=== PATIENT | female | born 1960 | race Caucasian/White ===

== ENCOUNTER 2019-09-14 18:26 | Emergency (ER) | payer OTHER, SELFPAY ==
[2019-09-14 18:26] VITALS: BP 177/115; PULSE 108; RESP 16; TEMP 36.9; O2SAT 95; BMI 31.2
--- NOTE | 2019-09-14 18:42 | RAD_ITS ---
STUDY: X-RAY CHEST REASON FOR EXAM: Female, 59 years old. Chest pain for 10 days TECHNIQUE: Single frontal view of the chest. COMPARISON: None. FINDINGS: The lungs are clear and expanded. There is no demonstrated pleural abnormality. Normal size heart. Normal mediastinum and bairon. Normal visualized pulmonary arteries. Normal visualized aortic arch and descending thoracic aorta. Normal visualized thoracic spine. Normal visualized ribs, clavicles, and shoulders. There is no demonstrated abnormality of the visualized soft tissue structures of the upper abdomen. RAD/Chest 1 View (Portable) IMPRESSION: Normal x-ray examination of the chest. Electronically Signed: Kameron Lagos MD at 19:00 EDT Tel , Service support ,
--- NOTE | 2019-09-14 18:42 | EKG12_ITS ---
Test Reason : CP Blood Pressure : / mmHG Vent. Rate : 105 BPM Atrial Rate : 105 BPM P-R Int : 196 ms QRS Dur : 102 ms QT Int : 352 ms P-R-T Axes : 027 002 006 degrees QTc Int : 465 ms Sinus tachycardia Inferior infarct , age undetermined Abnormal ECG Confirmed by PATTI CHAN, MAUREEN ([id number]), technical writer and editor THEO BRAR ([id number]) on 09/23/2019 11:26:59 AM Referred By: Jaquan King Confirmed By:MAUREEN ARMSTRONG MD
[2019-09-14 18:53] LABS: Absolute Lymphocyte Count 1.47 X10^3/uL (0.83-4.51); Absolute Neutrophil Count 5.4 X10^3/uL (2.0-7.7); Basophil# 0.05 X10^3/uL; Basophil% 0.6 % (0-1); Eosinophil# 0.19 X10^3/uL; Eosinophils% 2.5 % (0-5); Hematocrit 41.3 % (37-47); Lymphocyte # 1.47 X10^3/ul (4.0); Mean Corp Hgb Conc 33.9 g/dL (32-36); Mean Corpuscular Hgb 31.3 pg (27.0-32.0); Mean Corpuscular Volume 92.2 fL (81-99); Mean Platelet Vol. 10.2 fl (6.2-12.0); Monocyte% 7.8 % (0-10); NRBC Flagged by Analyzer 0 % (0-5); Neutrophil # 5.38 X10^3/uL (2.7-7.7); Neutrophil % 69.7 % (47-70); Platelet Count 320 K/mm3 (150-450); RBC Distribution Width CV 11.8 % (11.6-14.6); RBC Distribution Width SD 39.8 fl (35.1-43.9); Red Blood Count 4.48 M/mm3 (4.2-5.4); White Blood Count 7.7 K/mm3 (4.4-11.0)
[2019-09-14] MEDS: Aspirin 81 MG TAB.CHEW 324 MG PO (18:56)
[2019-09-14 18:57] VITALS: BP 160/110; PULSE 99; RESP 18; O2SAT 97
[2019-09-14] MEDS: 0.9% Normal Saline 1,000 ML 150 ML IV (18:57)
[2019-09-14 19:05] LABS: Anion Gap 6 (5-15); BUN 15 mg/dL (7-18); BUN/Creat Ratio 21.1 RATIO (10-20); Calcium,Total 9.2 mg/dL (8.5-10.1); Chloride 107 mmol/L (98-107); Creatinine, Serum 0.71 mg/dL (0.55-1.02); EST Glomerular Filtration Rate 90 mL/min (>60); Est Glom Filt Rate - Afr Amer 109 mL/min (>60); Estimated Creatinine Clearance 85.01 ml/min; Glucose 101 mg/dL (74-106); Potassium 3.5 mmol/L (3.5-5.1); Sodium Level 140 mmol/L (136-145)
[2019-09-14 19:07] LABS: D-Dimer Quantitative (DVT/PE) 0.57 FEU/ug/m (0.27-0.49)
--- NOTE | 2019-09-14 19:07 | ED.RN ---
DDIMER 0.57 CALLED FROM THE LAB . DR MARIE AWARE
--- NOTE | 2019-09-14 19:53 | ED.VISSUMM ---
- ER Visit Summary Date of Service: 09/14/19 Chief Complaint: [Chest pain] History of Present Illness: The patient is a 59 F [resents with chest discomfort off and on for about a week. Patient states the pain only lasts about 34 minutes at a time. She describes a pressure and at times radiating to her back. Initially thought it might be indigestion. Patient then stated that she thought maybe it felt different than indigestion. She denies any radiation of the pain down the arms or into the neck. At times she had some minimal nausea. She is had some mild shortness of breath. Patient has been under a lot more stress and thinks may be could be anxiety. States she walked 2 miles today and she did really well except when she went up 1 of the hill she had some minimal discomfort in her chest. She has no family history of heart disease. She denies recent travel or surgery. She is never had any type of cardiac work-up. Patient is currently pain-free.] Physical Examination: [HEENT-PERRLA, EOMI. Cranial nerves II through XII grossly intact. TMs clear. Mucous membranes moist. No adenopathy. Cardiovascular-regular rate and rhythm without murmur or ectopy Lungs-clear to auscultation, chest wall stable without crepitus or subcu emphysema Abdomen-normoactive bowel sounds, soft, nontender, no rebound or rigidity, no peritoneal signs. Extremities-intact ?4, normal range of motion, normal pulses, atraumatic] Test Results: [EKG obtained arrival shows sinus rhythm with a ventricular rate of 105 bpm with no acute ST segment changes. Patient had questionable inferior wall infarct given that she is got Q waves in lead III and aVF. CBC with differential obtained was normal. Chemistries unremarkable. Troponin was less than 0.15. D-dimer was 0.57 which when adjusted for age is normal. Chest x-ray showed nothing acute.] Emergency Department Course and Treatment: [Patient received aspirin while in the emergency department. Had a long discussion with the patient as the etiology of her symptoms unclear. She is low risk and that she has a JIM risk score of 0 and a cardiac heart score of 1. I discussed options of admission and stress testing tomorrow however she states that she would prefer to follow-up as an outpatient and does not want to be admitted at this time. She understands I cannot completely rule out cardiac etiology of her chest pain. Patient advised to return if worsening symptoms.] Treatment Plan: [We will up with primary care physician for possible outpatient stress testing.] Disposition: [Discharged home in stable condition] Impression: [Chest pain-etiology uncertain] This note was generated with Purple dictation software. It may contain incorrect words, spelling, and punctuation that were not noted in review of the chart prior to signing ED Disposition - Plan for ED Patient: Referrals: Talha Belcher [Primary Care Provider] -
--- NOTE | 2019-09-14 19:57 | ED.DEP ---
ED Disposition - Plan for ED Patient: Instructions: CHEST PAIN, Uncertain Cause Referrals: Talha Belcher [Primary Care Provider] - As soon as possible
[2019-09-14 20:05] VITALS: BP 159/101; PULSE 88; RESP 14; O2SAT 95
== END 2019-09-14 20:08 | disposition home or self-care (01) ==
PROVIDERS: Emergency Provider Emergency Medicine; Family Provider Student in an Organized Health Care Education/Training Program; PCP Student in an Organized Health Care Education/Training Program
DX: R07.9 Chest pain, unspecified (principal)
CPT/HCPCS: 71045; 80048; 84484; 85025; 85379; 93005; 96360; 99285; A4216

== ENCOUNTER 2019-09-16 09:20 | Observation (INO) | payer OTHER, SELFPAY ==
[2019-09-16 09:21] VITALS: BP 151/101; PULSE 96; RESP 17; TEMP 36.9; O2SAT 97; BMI 30.4
--- NOTE | 2019-09-16 09:26 | EKG12_ITS ---
Test Reason : CP Blood Pressure : / mmHG Vent. Rate : 085 BPM Atrial Rate : 085 BPM P-R Int : 166 ms QRS Dur : 100 ms QT Int : 354 ms P-R-T Axes : 030 000 -02 degrees QTc Int : 421 ms Normal sinus rhythm Inferior infarct , age undetermined Abnormal ECG Confirmed by ARETHA VICTOR ([id number]), non linear editor THEO BRAR ([id number]) on 09/21/2019 8:46:44 AM Referred By: Jaquan King Confirmed By:ARETHA VICTOR
--- NOTE | 2019-09-16 09:26 | RAD_ITS ---
STUDY: X-RAY CHEST REASON FOR EXAM: Female, 59 years old. 10 day history of chest pain with dizziness. TECHNIQUE: Single AP portable view of the chest. COMPARISON: Comparison is made with prior examination dated September 14, 2019. FINDINGS: EKG electrodes are seen. The lungs are clear and expanded. There is no demonstrated pleural abnormality. Normal size heart. Normal mediastinum and bairon. Normal visualized pulmonary arteries. There is atherosclerotic tortuosity of the aortic arch and descending thoracic aorta. Normal visualized thoracic spine. Normal visualized ribs, clavicles, and shoulders. There is no demonstrated abnormality of the visualized soft tissue structures of the upper abdomen. RAD/Chest 1 View (Portable) IMPRESSION: No acute abnormality is seen. Electronically Signed: Giovany Carmen, at 9:59 EDT , Service support ,
[2019-09-16 09:30] VITALS: O2SAT 100
[2019-09-16] MEDS: Aspirin 81 MG TAB.CHEW 324 MG PO (09:34)
[2019-09-16 09:41] LABS: Absolute Lymphocyte Count 1.25 X10^3/uL (0.83-4.51); Absolute Neutrophil Count 4.3 X10^3/uL (2.0-7.7); Basophil# 0.04 X10^3/uL; Basophil% 0.6 % (0-1); Eosinophil# 0.14 X10^3/uL; Eosinophils% 2.3 % (0-5); Hematocrit 43.4 % (37-47); Hemoglobin 14.7 g/dL (12.0-15.0); Lymphocyte # 1.25 X10^3/ul (4.0); Lymphocyte % 20.1 % (19-41); Mean Corp Hgb Conc 33.9 g/dL (32-36); Mean Corpuscular Hgb 31.3 pg (27.0-32.0); Mean Corpuscular Volume 92.3 fL (81-99); Mean Platelet Vol. 9.8 fl (6.2-12.0); Monocyte# 0.49 X10^3/uL; Monocyte% 7.9 % (0-10); NRBC Flagged by Analyzer 0 % (0-5); Neutrophil # 4.28 X10^3/uL (2.7-7.7); Neutrophil % 68.8 % (47-70); Platelet Count 342 K/mm3 (150-450); RBC Distribution Width CV 11.8 % (11.6-14.6); RBC Distribution Width SD 39.8 fl (35.1-43.9); White Blood Count 6.2 K/mm3 (4.4-11.0)
[2019-09-16 09:58] LABS: Anion Gap 7 (5-15); BUN 16 mg/dL (7-18); BUN/Creat Ratio 21.6 RATIO (10-20); Calcium,Total 9.2 mg/dL (8.5-10.1); Chloride 105 mmol/L (98-107); Creatinine, Serum 0.74 mg/dL (0.55-1.02); EST Glomerular Filtration Rate 86 mL/min (>60); Est Glom Filt Rate - Afr Amer 104 mL/min (>60); Estimated Creatinine Clearance 81.57 ml/min; Glucose 111 mg/dL (74-106); Potassium 3.5 mmol/L (3.5-5.1); Sodium Level 140 mmol/L (136-145)
--- NOTE | 2019-09-16 10:01 | ED.DCSUM_ITS ---
- ER Visit Summary Date of Service: 09/16/19 Chief Complaint: Chest discomfort History of Present Illness: The patient is a 59 F history of high cholesterol. Patient states the last 10 days she had intermittent chest pressure. Worse typically in the afternoons. Patient walks 2-1/2 miles a day and has noticed some difference with exertion or inclines. She denies any history of DVT or PE. No recent travel, surgery or immobilization. No leg pain or swelling. The pain is not pleuritic. She is had no hemoptysis. Joint no significant family history of cardiac disease. She is a non-smoker. There is no significant family history of clotting disorder. At times it is a burning sensation. There is no radiation to her jaw or neck. Physical Examination: Rest. Vital signs are stable and afebrile. Pulse ox 100% on room air no signs of hypoxia. HEENT exam unremarkable. Neck nontender no lymphadenopathy. Lungs clear to auscultation bilaterally. Heart regular rate and rhythm no murmur. Chest wall nontender. Abdomen soft nontender. Patient moving all 4 extremities. Neurovascular intact. Equal symmetrical reservation manager strength. Dorsi plantarflexion intact. Equal symmetrical radial pulses. Calves are nontender without edema. Back is nontender. Neurologically she is awake and alert. Test Results: Normal with a hemoglobin of 14. Normal white count. EKG sinus rhythm rate of 85 with no acute signs of [place] or ischemia. Inferiorly she does have a Q wave could be consistent with an old inferior [place] this was seen on the prior EKG. There is no acute signs of ischemia unchanged from prior EKG from the . Chest x-ray shows normal cardiac silhouette with no acute abnormality and no change. BMP and troponin are normal. Emergency Department Course and Treatment: Atypical nonreproducible chest pain. Will be admitted. Repeat troponin II-III hours after the first and then hopefully a stress echo later today. I did discuss all this with poultry hatchery manager on-call and I have the hospitalist on page. Treatment Plan: Admission for stress testing. Disposition: Observation Impression: Acute chest pain of uncertain etiology This note was generated with CaptureProof dictation software. It may contain incorrect words, spelling, and punctuation that were not noted in review of the chart prior to signing ED Disposition - Plan for ED Patient: Referrals: Talha Belcher [Primary Care Provider] -
[2019-09-16 10:24] VITALS: BP 145/101; PULSE 81; RESP 18; O2SAT 95
--- NOTE | 2019-09-16 11:05 | ECHOD_ITS ---
Reason For Study: Chest Pain Procedure This was a 2D Doppler, Color Flow transthoracic echocardiogram. Exam performed portable in patient room. Left Ventricle Normal size and thickness. The estimated ejection fraction is 65 %. Stage 1 diastolic dysfunction. No regional wall motion abnormalities noted. Right Ventricle Normal size and thickness. Normal systolic function. Atria Normal left atrium. Normal right atrium. Normal atrial septum. Mitral Valve The mitral valve is structurally normal. No prolapse or stenosis seen. Trivial mitral valve insufficiency. Tricuspid Valve Normal tricuspid valve. Trivial tricuspid valve insufficiency. Right ventricular systolic pressure estimated to be 25 mmHg. Aortic Valve Trisinus/trileaflet aortic valve. Mild focal aortic valve thickening. Pulmonic Valve Normal pulmonic valve. Trivial pulmonic valve insufficiency. Great Vessels Normal aortic root. Normal arch. Normal inferior vena cava. Inferior vena cava collapse with sniff. Pericardium/Pleural No pericardial effusion. MMode/2D Measurements & Calculations LVIDd: 4.1 cm IVSd: 1.2 cm Ao root diam: 3.5 cm LVIDs: 2.5 cm LVPWd: 1.00 cm RVDd: 3.1 cm FS: 39.4 % LAV(MOD-bp): 25.9 ml LVAd ap4: 25.9 cm2 SV(MOD-sp4): 44.6 ml LAV(MOD-bp) Indexed: 13.0 ml/m2 EDV(MOD-sp4): 70.0 ml LAV(MOD-sp2): 28.9 ml EDV(sp4-el): 70.0 ml LAV(MOD-sp4): 23.0 ml LVAs ap4: 13.6 cm2 ESV(MOD-sp4): 25.4 ml ESV(sp4-el): 24.4 ml EF(MOD-sp4): 63.7 % EF(sp4-el): 65.2 % SV(sp4-el): 45.6 ml LA A4 area: 11.5 cm2 LA dimension(2D): 3.6 cm RA A4 area: 12.1 cm2 Doppler Measurements & Calculations MV E max ronald: 67.3 cm/sec Lat Peak E' Ronald: 8.4 cm/sec Med Peak E' Ronald: 5.7 cm/sec MV A max ronald: 99.6 cm/sec E/E' lat: 8.0 E/E' med: 11.7 MV E/A: 0.68 Ao V2 max: 142.7 cm/sec LV V1 max: 113.6 cm/sec PA V2 max: 68.4 cm/sec Ao max P.1 mmHg LV V1 max P.2 mmHg Ao V2 mean: 96.6 cm/sec Ao mean P.2 mmHg Ao V2 VTI: 26.8 cm PI end-d ronald: 107.9 cm/sec TR max ronald: 212.0 cm/sec TR max P.0 mmHg Interpretation Summary The estimated ejection fraction is 65 %. Stage 1 diastolic dysfunction. Trivial mitral valve insufficiency. Trivial tricuspid valve insufficiency. Right ventricular systolic pressure estimated to be 25 mmHg. Mild focal aortic valve thickening at the tip of the non coronary cusp. There is no comparison study available. Ordering Physician: Jaquan King Referring Physician: Talha Huber Performed By: Yanni Rodriguez, SHAWN, RVT
[2019-09-16 11:13] VITALS: BMI 29.8
[2019-09-16 11:32] VITALS: PULSE 75
[2019-09-16 11:35] VITALS: BP 155/101; PULSE 71; RESP 18; TEMP 36.5; O2SAT 97
[2019-09-16] MEDS: Acetaminophen 325 MG Tablet 650 MG PO (12:52)
--- NOTE | 2019-09-16 12:56 | PCM.HP.STD ---
Problem List (1) Chest pain Status: Acute History of Present Illness Date of Admission: 09/16/19 Chief Complaint: Chest pain. The patient is a 59 year old F who presents emergency room due to chest pain. Patient reports she has had constant chest pressure/chest tightness for the past 10 days. Patient reports the discomfort is constant however seems to worsen at night. She does report this may be due to underlying anxiety as she has been dealing with a lot of stress related to health issues with her son. She reports she took a family members Ativan the last few nights and it helped her symptoms. She denies associated shortness of breath, diaphoresis, lightheadedness. Denies pain radiation. She has no prior medical history. Past Medical History Allergies No Known Allergies Allergy (Verified 09/16/19 09:21) Home Medications: Ambulatory Orders Medication Instructions Recorded NK 09/14/19 Surgical History: tonsillectomy, - - Hysterectomy Psychiatric History: No pertinent psych hx MICRO PALEONTOLOGIST History: No pertinent MICRO PALEONTOLOGIST history Lives: Spouse/ Significant Other Smoking Status: Former smoker Alcohol: Rare Drugs: None - *Family History Maternal History Items: - - Denies known maternal medical history including cardiac history. Paternal History Items: - - Denies known paternal medical history including cardiac history. Review of Systems Constitutional: Denies: Chills, Fever, Weight Change HEENT: Denies: Head Aches, Sinus Congestion, Sinus Drainage Cardiovascular: Reports: Chest Pressure, Chest Tightness. Denies: Light Headedness, Palpitations, Syncope Respiratory: Denies: Cough, Shortness of breath at rest, Sputum production Gastrointestinal: Denies: Abdominal Pain, Nausea, Vomiting Genitourinary: Denies: Dysuria Musculoskeletal: Denies: Joint Pain, Joint Tenderness Skin: Denies: Rash, Wounds Neurological: Denies: Numbness, Tingling, Focal weakness Psychiatric: Reports: Anxiety. Denies: Depression, Homicidal Ideations, Suicidal Ideations Hematologic/ Lymphatic: Denies: Easy Bruising, Easy Bleeding VTE Information - Inpt Only VTE Present on Admission: No VTE Mechan Device Prophylaxis: None VTE Pharm Prophylaxis ordered?: No Reason prophylaxis not ordered:: Treatment Not Indicated Patient Problems: Active and Suspected Problems Chest pain (Acute) - Physical Exam Vitals/I&O's: Vital Signs Temp Pulse Resp BP Pulse Ox 97.7 F L 71 18 155/101 H 97 09/16/19 11:35 09/16/19 11:35 09/16/19 11:35 09/16/19 11:35 09/16/19 11:35 Oxygen Flow Rate (L/min) 1 Oxygen Delivery Method Room Air Weight: 190 lb 7.67 oz Body Mass Index (BMI) 29.8 General: Alert, Oriented x3, Cooperative HEENT: Atraumatic, PERRLA, EOMI, Normocephalic Neck: Supple, No JVD, Negative Carotid Bruits Lungs: Clear to auscultation, Normal air movement Cardiovascular: Regular rate, Regular Rhythm, Normal S1, Normal S2, No murmurs Abdomen: Bowel Sounds Present, Soft, Non Tender, Non-Distended Extremities: No clubbing, No cyanosis, No edema, Capillary Refill Less than 3 Seconds Skin: No rashes, No breakdown Musculoskeletal: No Tenderness to Palpation of Joints or Extremities Neurological: Cranial nerves II-XII grossly intact, Neuro grossly intact Psych/Mental Status: Normal Affect, Appropriate Laboratory Results 09/16/19 09:32: WBC 6.2, RBC 4.70, Hgb 14.7, Hct 43.4, MCV 92.3, MCH 31.3, MCHC 33.9, RDW Std Deviation 39.8, RDW Coeff of Jelly 11.8, Plt Count 342, MPV 9.8, Immature Gran % (Auto) 0.300, Neut % (Auto) 68.8, Lymph % (Auto) 20.1, [place] % (Auto) 7.9, Eos % (Auto) 2.3, Baso % (Auto) 0.6, Absolute Neuts (auto) 4.3, Absolute Lymphs (auto) 1.25, Nucleated RBC % 0 09/16/19 09:32: Sodium 140, Potassium 3.5, Chloride 105, Carbon Dioxide 28.0, Anion Gap 7, BUN 16, Creatinine 0.74, Estim Creat Clear Calc 81.57, Est GFR (MDRD) Af Amer 104, Est GFR (MDRD) Non-Af 86, BUN/Creatinine Ratio 21.6 H, Glucose 111 H, Calcium 9.2, Troponin I < 0.015 09/16/19 11:59: Troponin I < 0.015 Current Medications Acetaminophen (Tylenol) 650 mg PO Q6H PRN PRN PRN Reason: Pain Score 1-10/10 Last Admin: 09/16/19 12:52 Dose: 650 mg Documented by: Assessment/Plan All Active Problems Chest pain (Acute) 1. Atypical chest pain, rule out ACS-suspect related to underlying anxiety. EKG without ST-T changes. Chest x-ray unremarkable. Troponin negative x2. Plan for stress echo this afternoon. 2. Uncontrolled anxiety-exacerbated by recent stress with family illness. Discussed initiating medication regimen, patient agreeable. DVT prophylaxis-not indicated This patient was seen by KASHIF Nam under the supervision of Dr. King.
--- NOTE | 2019-09-16 13:00 | STEWCON_ITS ---
Reason For Study: Chest Pain Stress Results Protocol: Rivera Protocol Maximum Predicted HR: 163 bpm Target HR: 139 bpm % Maximum Predicted HR: 95 % DurationHeart Rate Stage (mm:ss) (bpm) BP Comment Baseline 91 158/861/10 Chest Pain; 4 ML Diluted Definity Given Rivera Protocol Stage I 3:00 122 194/1101/10 Chest Pain Rivera Protocol Stage II 3:00 141 198/110No Chest Pain Irvera Protocol Stage III 1:30 155 / No Chest Pain Recovery 105 160/90No Chest Pain Stress Duration: 7:30 mm:ss Maximum Stress HR: 155 bpm METS: 10 Baseline Echocardiogram Findings The estimated ejection fraction is 65 %. Stress Echo Wall motion Data Resting WM Intermediate WM Stress WM Resting Wall Motion Wall Motion Stress No regional wall motion No regional wall motion abnormalities noted. abnormalities noted. EKG Data The baseline ECG displays normal sinus rhythm. The patient exercised according to the regular Rivera protocol for a total duration of 7:30. The maximum heart rate attained was 171 beats per minute. This was 104% of maximum predicted heart rate. The patient exercised into stage 3 of the Rivera protocol. During stress, there were no ST or T wave changes noted to suggest ischemia. Interpretation Summary The estimated ejection fraction is 65 %. Normal, adequate, treadmill echocardiogram. Negative for ischemia by EKG and echocardiographic criteria. Patient had 1 out of 10 chest pain at baseline, which did not appreciably worsen during exercise. Rare PVC during exercise. Hypertensive blood pressure response to exercise. Average exercise capacity for age. Final LVEF is 75%. Test terminated due to the attainment of target heart rate and mild dyspnea. Decreased sensitivity due to poor echo windows requiring Definity agent. Recommend clinical correlation or alternative mode of testing to further evaluate chest pain symptoms. No complications. The study was technically difficult. Contrast injection was performed. Ordering Physician: Jaquan King Referring Physician: Vincenzo Cha Performed By: Sissy Goode, RDCS, RVT
[2019-09-16 14:50] VITALS: PULSE 91
--- NOTE | 2019-09-16 15:41 | DS.PCM_ITS ---
Discharge Date and Diagnosis Date of Admission: 09/16/19 Date of Discharge: 09/16/19 - Primary Discharge Diagnosis Active and Suspected Problems 1. Non-cardiac chest pain, ACS ruled out 2. Situational anxiety 3. Elevated blood pressure without history of hypertension Hospital Course and Treatment Imaging Results: Diagnostic Data Chest X-Ray 09/16/19 09:26 IMPRESSION: No acute abnormality is seen. Electronically Signed: Giovany Carmen, at 9:59 EDT , Service support , Operations: None Procedures: Stress test Summary of Care Provided: The patient is a 59 year old F admitted 09/16/2019 due to chest pain. 1. Non-cardiac chest pain, ACS ruled out-troponin negative. EKG without ST-T changes. Patient underwent stress echo which demonstrated an EF of 65%, no evidence of ischemia. Cardiac etiology ruled out. Patient reports she has been under increased stress with health issues related to her son. Suspect symptoms are related to anxiety. Follow-up with primary care provider in 1 week. 2. Situational anxiety- due to health issues with patient's son. PRN xanax at discharge until able to follow up with PCP. Advised SSRI which patient did not want to take. Encouraged counseling, referred to [facility]. 3. Elevated blood pressure without history of hypertension-initiated on metoprolol 12.5 mg p.o. twice daily. Follow-up with primary care provider for further monitoring. General: Alert, Oriented x3, Cooperative HEENT: Atraumatic, PERRLA, EOMI, Normocephalic Neck: Supple, No JVD, Negative Carotid Bruits Lungs: Clear to auscultation, Normal air movement Cardiovascular: Regular rate, Regular Rhythm, Normal S1, Normal S2, No murmurs Abdomen: Bowel Sounds Present, Soft, Non Tender, Non-Distended Extremities: No clubbing, No cyanosis, No edema, Capillary Refill Less than 3 Seconds Skin: No rashes, No breakdown Musculoskeletal: No Tenderness to Palpation of Joints or Extremities Neurological: Cranial nerves II-XII grossly intact, Neuro grossly intact Psych/Mental Status: Normal Affect, Appropriate Patient seen and examined prior to discharge. Physical assessment as noted above. Patient is stable for discharge with follow up recommendations as noted above. This patient was seen by KASHIF Nam under the supervision of Dr. King. - Physical Exam Vitals/I&O's: Vital Signs Temp Pulse Resp BP Pulse Ox 97.7 F L 91 18 155/101 H 97 09/16/19 11:35 09/16/19 14:50 09/16/19 11:35 09/16/19 11:35 09/16/19 11:35 Oxygen Flow Rate (L/min) 1 Oxygen Delivery Method Room Air Weight: 190 lb 7.67 oz Body Mass Index (BMI) 29.8 Laboratory Results 09/16/19 09:32: WBC 6.2, RBC 4.70, Hgb 14.7, Hct 43.4, MCV 92.3, MCH 31.3, MCHC 33.9, RDW Std Deviation 39.8, RDW Coeff of Jelly 11.8, Plt Count 342, MPV 9.8, Immature Gran % (Auto) 0.300, Neut % (Auto) 68.8, Lymph % (Auto) 20.1, [place] % (Auto) 7.9, Eos % (Auto) 2.3, Baso % (Auto) 0.6, Absolute Neuts (auto) 4.3, Absolute Lymphs (auto) 1.25, Nucleated RBC % 0 09/16/19 09:32: Sodium 140, Potassium 3.5, Chloride 105, Carbon Dioxide 28.0, Anion Gap 7, BUN 16, Creatinine 0.74, Estim Creat Clear Calc 81.57, Est GFR (MDRD) Af Amer 104, Est GFR (MDRD) Non-Af 86, BUN/Creatinine Ratio 21.6 H, Gluc ose 111 H, Calcium 9.2, Troponin I < 0.015 09/16/19 11:59: Troponin I < 0.015 Current Medications Acetaminophen (Tylenol) 650 mg PO Q6H PRN PRN PRN Reason: Pain Score 1-08/27 Last Admin: 09/16/19 12:52 Dose: 650 mg Documented by: Discharge Diet: No Restrictions Discharge Activity: Return to Normal Activity Call your doctor if you observe: Shortness of breath, Dizziness, Fainting spells, Chest pain Home Medications: Medications to take at Discharge ALPRAZolam [Xanax] 0.5 mg PO TID PRN PRN #30 tab 09/16/19 Metoprolol Tartrate 12.5 mg PO BID #30 tab 09/16/19 Following Prescrptions Were Given to Patient: Metoprolol Tartrate 12.5 mg PO BID #30 tab Prescription Printed ALPRAZolam [Xanax] 0.5 mg PO TID PRN PRN #30 tab PRN Reason: Anxiety Prescription Printed Primary Care Physician: Talha Belcher [Primary Care Provider] - Please follow up with your Primary Care Physician in: 1 Week Please Follow Up With: [facility] When: call to schedule Disposition: Home Minutes spent on discharge:: 35 Patient Condition:: Stable Medical Necessity - Tobacco Use Smoking Status: Former smoker Meaningful Use Info Meaningful Use Diagnoses (Choose all that apply): None applicable
--- NOTE | 2019-09-16 15:43 | DCINST_ITS ---
- Discharge Diagnoses Current Active Problems: Current Active and Chronic Problems Chest pain (Acute) You will use the following diet at home:: No restrictions Your food should be the consistency of: Regular Your liquids should be the consistency of: Regular/Thin Discharge Activity: Return to Normal Activity Weight Bearing Status: Full weight bearing Allergies/Adverse Reactions: Allergies No Known Allergies Allergy (Verified 09/16/19 09:21) Medications to take at Discharge ALPRAZolam [Xanax] 0.5 mg PO TID PRN PRN #30 tab 09/16/19 Metoprolol Tartrate 12.5 mg PO BID #30 tab 09/16/19 The following prescriptions were given: Metoprolol Tartrate 12.5 mg PO BID #30 tab Prescription Printed ALPRAZolam [Xanax] 0.5 mg PO TID PRN PRN #30 tab PRN Reason: Anxiety Prescription Printed Primary Care Physician: Talha Belcher [Primary Care Provider] - Please follow up with your Primary Care Physician in: in 2-3 weeks Test Results: Test results from this visit will be discussed in further detail at your follow- up appointment, if applicable.
--- NOTE | 2019-09-16 16:15 | EKG12_ITS ---
Test Reason : CP ADMITT Blood Pressure : / mmHG Vent. Rate : 066 BPM Atrial Rate : 066 BPM P-R Int : 174 ms QRS Dur : 100 ms QT Int : 378 ms P-R-T Axes : 032 -05 -06 degrees QTc Int : 396 ms Normal sinus rhythm Inferior infarct , age undetermined , cannot be excluded Abnormal ECG Confirmed by PATTI CHAN, MAUREEN ([id number]), editor in chief newspaper MIMI RIBEIRO ([id number]) on 09/22/2019 8:58:56 AM Referred By: Jaquan King Confirmed By:MAUREEN ARMSTRONG MD
== END 2019-09-16 16:35 | disposition home or self-care (01) ==
LOC: ED 10:11 → PCU 10:59
PROVIDERS: Admitting Provider Internal Medicine; Emergency Provider Emergency Medicine; Family Provider Student in an Organized Health Care Education/Training Program; PCP Student in an Organized Health Care Education/Training Program; Referring Provider Internal Medicine; Visit Provider Internal Medicine
DX: R07.89 Other chest pain (principal); E78.00 Pure hypercholesterolemia, unspecified; F41.9 Anxiety disorder, unspecified; Z87.891 Personal history of nicotine dependence; I08.1 Rheumatic disorders of both mitral and tricuspid valves; R03.0 Elevated blood-pressure reading, without diagnosis of hypertension
CPT/HCPCS: 36415; 71045; 80048; 84484; 85025; 93005; 93017; 93306; 93350; 99218; 99285; Q9957; A4216; C8928; G0378

== ENCOUNTER 2021-10-05 06:04 | Emergency (ER) | payer OTHER, SELFPAY ==
[2021-10-05 06:05] VITALS: BP 159/106; PULSE 101; RESP 18; TEMP 36.7; O2SAT 92; BMI 32.2
[2021-10-05 06:07] VITALS: BP 159/106; PULSE 94; RESP 18; TEMP 36.7; O2SAT 93
--- NOTE | 2021-10-05 06:12 | EKG12_ITS ---
Test Reason : SOB Blood Pressure : / mmHG Vent. Rate : 101 BPM Atrial Rate : 101 BPM P-R Int : 170 ms QRS Dur : 094 ms QT Int : 358 ms P-R-T Axes : 012 -04 001 degrees QTc Int : 464 ms Sinus tachycardia Inferior infarct , age undetermined Abnormal ECG Confirmed by ORLANDO CHAN, ELSI ([id number]), senior technical editor THEO BRAR ([id number]) on 10/06/2021 1:56:24 P M Referred By: RUPERTO Confirmed By:JEREMIAH PERRY MD
--- NOTE | 2021-10-05 06:12 | RAD_ITS ---
STUDY: X-RAY CHEST REASON FOR EXAM: Female, 61 years old. cough TECHNIQUE: Single AP portable view of the chest. COMPARISON: None. FINDINGS: Ill-defined subpleural groundglass opacities are seen more prominent in the lung bases , may represent atypical pneumonia or viral pneumonia (COVID-19 ?). There is no demonstrated pleural abnormality. Normal size heart. Normal mediastinum and bairon. Normal visualized pulmonary arteries. Normal visualized aortic arch and descending thoracic aorta. Normal visualized thoracic spine. Normal visualized ribs, clavicles, and shoulders. There is no demonstrated abnormality of the visualized soft tissue structures of the upper abdomen. RAD/Chest 1 View (Portable) IMPRESSION: Ill-defined subpleural groundglass opacities are seen more prominent in the lung bases , may represent atypical pneumonia or viral pneumonia (COVID-19 ?). Electronically Signed: Ruslan Mckeon MD at 7:00 EST Tel , Service support ,
--- NOTE | 2021-10-05 06:25 | CT_ITS ---
STUDY: CTA CHEST REASON FOR EXAM: Female, 61 years old. dyspnea RADIATION DOSAGE (If Supplied By Facility): CTDIvol = ( 11.85 ) mGy, DLP = ( 475.40 ) mGycm TECHNIQUE: The examination was performed with the intravenous administration of IV 100mL Isovue-370. Post-processing of the angiographic images was performed, with multiplanar reformation and 3D reconstruction. Individualized dose optimization techniques were used for this CT. COMPARISON: None. FINDINGS: Normal enhancement of the main pulmonary artery and right and left pulmonary arteries. Normal enhancement of the bilateral peripheral pulmonary arteries. There is no demonstrated pulmonary embolism. Normal thoracic aorta and visualized great vessels. There is no demonstrated aortic dissection. Normal heart and pericardium. Normal mediastinum. Normal hilar regions. Normal visualized trachea and bronchi. The lungs are well expanded. Normal pulmonary parenchyma. Normal pleura. Normal chest wall structures. Normal osseous structures. Normal visualized upper abdomen. CT/CTA Chest W/WO Contrast IMPRESSION: No demonstrated pulmonary embolism or arterial dissection. Ill-defined subpleural groundglass opacities are seen more prominent in the lung bases , may represent atypical pneumonia or viral pneumonia (COVID-19 pneumonia). Electronically Signed: Ruslan Mckeon MD at 7:28 EST Tel , Service support ,
--- NOTE | 2021-10-05 06:26 | EDS_ITS ---
HPI History of Present Illness Chief Complaint: Shortness of Breath Narrative Narrative: 61-year-old female on day 9 of COVID-19 symptoms presenting with shortness of breath. She states that at home her pulse ox dropped to 87% while resting. Patient states her T-max is 99 ?F currently. She denies any chest pain. She does admit to dyspnea and dyspnea on exertion. Patient states she did a home test and she does not have any documentation of her COVID-19 test. She denies any other medical problems. She states that she tried to call her PCP to get a referral for monoclonal antibodies a couple of days ago but has not been able to obtain this. She states she was told at the [facility] does not refer her for monoclonal antibodies. Patient has no history of DVT/PE. She has no risk factors over the COVID-19. She states she has been eating drinking normally. She denies nausea, vomiting, diarrhea. PFSH PFSH Home Medications NK 10/05/21 [History Last Taken Unknown] Allergy/AdvReac Type Severity Reaction Status Date / Time No Known Allergies Allergy Verified 10/05/21 06:07 Surgical History History of hysterectomy History of tonsillectomy Social History Smoking Status: Former smoker ROS ROS ED Constitutional Constitutional ED: Reports chills Eyes Eyes: Denies blurry vision or change in vision ENT ENT ED: Denies rhinorrhea or sore throat Cardiovascular Cardiovascular: Denies chest pain or palpitations Respiratory/Chest Respiratory/Chest: Reports cough, dyspnea and dyspnea on exertion Gastrointestinal Gastrointestinal: Denies abdominal pain, nausea or vomiting Genitourinary Genitourinary ED: Denies dysuria or hematuria Musculoskeletal Musculoskeletal: Denies arthralgias, myalgias or neck pain Integumentary Denies abscess or rash Neurologic Neurologic: Denies headache(s) or paresthesias Psychiatric Psychiatric: Denies anxiety or depression EXAM Physical Exam Const Vital Signs: 10/05/21 06:05 10/05/21 06:07 10/05/21 06:12 Temperature 98.1 F 98.1 F Temperature Source Oral Oral Pulse Rate 101 H 94 Respiratory Rate 18 18 Respiratory Effort Short of Breath Blood Pressure 159/106 H 159/106 H Blood Pressure Mean 123 123 Pulse Ox 92 93 Oxygen Delivery Method Room Air Room Air Positive well nourished General Appearance ED: NAD; Negative for pallor HEENT Reports moist mucous membranes atraumatic Eyes PERRL and EOMs intact bilaterally Resp normal respiratory effort Auscultation: Negative for rales, rhonchi or wheezes Cardio regular rate and regular rhythm Neuro oriented x3, CN's II-XII intact bilaterally and no sensory deficits noted Sensorium / Orientation: alert Motor Exam: strength 5/5 throughout Psych mental status grossly normal Skin General Skin Exam: Negative for jaundice or pallor MDM MDM MDM Narrative Medical decision making narrative: EKG on arrival is sinus tachycardia at 101 beats per minute without sign of ischemic change. Chest x-ray my interpretation shows bilateral pulmonary implants consistent with pneumonia diagnosis. So far her CBC shows that she is leukopenic and lymphopenic. Patient will need to be tested for Covid 19 due to at home test that she took. She has no documentation of this. Covid PCR test was ordered. Patient has not been hypoxic here in the ED. She requests a referral for monoclonal antibodies and is hoping to get in by day 10 which is tomorrow. Will check an ambulating pulse ox to make sure that she is not hypoxic. Patient care will be signed over to incoming ED physician. Lab Data Attestation: I reviewed the patient's lab results. Labs: Laboratory Results - last 24 hr 10/05/21 06:30 WBC 3.1 L RBC 4.18 L Hgb 13.3 Hct 38.4 MCV 91.9 MCH 31.8 MCHC 34.6 RDW Std Deviation 40.4 RDW Coeff of Jelly 11.9 Plt Count 209 MPV 10.0 Immature Gran % (Auto) 0.300 Neut % (Auto) 83.0 H Lymph % (Auto) 12.8 L [place] % (Auto) 3.3 Eos % (Auto) 0.3 Baso % (Auto) 0.3 Absolute Neuts (auto) 2.5 Absolute Lymphs (auto) 0.39 L Nucleated RBC % 0 Diff Path Review May foll Radiography Diagnostic Testing: Clinical Impression(s) from Imaging Studies Chest X-Ray 10/05/21 06:12 IMPRESSION: Ill-defined subpleural groundglass opacities are seen more prominent in the lung bases , may represent atypical pneumonia or viral pneumonia (COVID-19 ?). Electronically Signed: Ruslan Mckeon MD at 7:00 EST Tel , Service support , Discharge Plan Triage Chief Complaint: Shortness of Breath ED Provider: Vitaly Lemon Dx/Rx/DC Orders Prescriptions: No Action NK RF: 0 Primary Care Provider: Talha Belcher
[2021-10-05 06:38] LABS: Absolute Lymphocyte Count 0.39 X10^3/uL (0.83-4.51); Absolute Neutrophil Count 2.5 X10^3/uL (2.0-7.7); Basophil# 0.01 X10^3/uL; Basophil% 0.3 % (0-1); Eosinophil# 0.01 X10^3/uL; Eosinophils% 0.3 % (0-5); Hematocrit 38.4 % (37-47); Hemoglobin 13.3 g/dL (12.0-15.0); Lymphocyte # 0.39 X10^3/ul (0.83-4.51); Lymphocyte % 12.8 % (19-41); Mean Corp Hgb Conc 34.6 g/dL (32-36); Mean Corpuscular Hgb 31.8 pg (27.0-32.0); Mean Corpuscular Volume 91.9 fL (81-99); Monocyte% 3.3 % (0-10); NRBC Flagged by Analyzer 0 % (0-5); Neutrophil # 2.53 X10^3/uL (2.7-7.7); POSITIVE DIFFERENTIAL YES; Platelet Count 209 K/mm3 (150-450); RBC Distribution Width CV 11.9 % (11.6-14.6); RBC Distribution Width SD 40.4 fl (35.1-43.9); Red Blood Count 4.18 M/mm3 (4.2-5.4); White Blood Count 3.1 K/mm3 (4.4-11.0)
[2021-10-05 06:41] LABS: Differential Indicated SCAN CRITERIA MET
[2021-10-05 07:08] VITALS: O2SAT 96
[2021-10-05 07:08] LABS: ALB/GLOB Ratio 0.8 RATIO (0.9-2.4); AST(SGOT) 137 U/L (15-37); Alanine Aminotransfer ALT/SGPT 129 U/L (13-56); Albumin, Serum 3.1 g/dL (3.2-5.0); Alkaline Phosphatase 131 U/L (45-117); Anion Gap 7 (5-15); BUN 15 mg/dL (7-18); BUN/Creat Ratio 20.3 RATIO (10-20); Calcium,Total 7.9 mg/dL (8.5-10.1); Chloride 103 mmol/L (98-107); Creatinine, Serum 0.74 mg/dL (0.55-1.02); EST Glomerular Filtration Rate 85 mL/min (>60); Est Glom Filt Rate - Afr Amer 103 mL/min (>60); Globulin 3.7 g/dL (2.2-4.2); Glucose 143 mg/dL (74-106); Potassium 2.9 mmol/L (3.5-5.1); Protein, Total 6.8 g/dL (6.4-8.2); Sodium Level 136 mmol/L (136-145); Troponin-I HS 9 pg/mL (3.0-54.0)
[2021-10-05 07:50] LABS: Probe Check PASS; Specimen Processing Control PASS
[2021-10-05 08:05] VITALS: BP 131/90; PULSE 96; RESP 21; TEMP 37.4; O2SAT 94
[2021-10-05 08:07] VITALS: BP 131/90; PULSE 96; RESP 21; TEMP 37.4; O2SAT 94
[2021-10-05 08:49] VITALS: BP 134/66; PULSE 72; RESP 16; O2SAT 96
[2021-10-05] MEDS: dexAMETHasone 10 MG/ML Vial 6 MG IV (08:49)
[2021-10-05 14:51] LABS: Pathologist Review Reviewed
== END 2021-10-05 08:50 | disposition home or self-care (01) ==
PROVIDERS: Emergency Provider Student in an Organized Health Care Education/Training Program; PCP Student in an Organized Health Care Education/Training Program
DX: U07.1 COVID-19 (principal); J12.82 Pneumonia due to coronavirus disease 2019; Z87.891 Personal history of nicotine dependence
CPT/HCPCS: 71045; 71275; 80053; 84484; 85025; 87635; 93005; 96374; 99284; J7050; Q9967; U0005; A4216; U0003

== ENCOUNTER 2021-10-05 13:59 | Outpatient (CLI) | payer OTHER, SELFPAY ==
[2021-10-05] MEDS: 0.9% Saline Lock 10 ML Syringe IV (14:23)
[2021-10-05 14:24] VITALS: BP 145/89; PULSE 110; RESP 16; TEMP 37.3; O2SAT 95; BMI 31.3
[2021-10-05 15:00] VITALS: BP 151/88; PULSE 110; RESP 16; TEMP 37.2; O2SAT 95
[2021-10-05 15:59] VITALS: BP 150/86; PULSE 107; RESP 16; TEMP 37.2; O2SAT 98
== END 2021-10-05 16:00 | disposition home or self-care (01) ==
LOC: MS3OUT 14:00 → MS3 14:01
PROVIDERS: PCP Student in an Organized Health Care Education/Training Program; Referring Provider Nurse Practitioner Adult Health; Visit Provider Nurse Practitioner Adult Health
DX: Z23 Encounter for immunization (principal); U07.1 COVID-19
CPT/HCPCS: J7050; M0245; Q0245; A4216

== ENCOUNTER 2021-10-07 21:15 | Emergency (ER) | payer OTHER, SELFPAY ==
[2021-10-07 21:15] VITALS: BP 166/108; PULSE 95; RESP 18; TEMP 36.2; O2SAT 95; BMI 31.4
[2021-10-07 21:29] VITALS: BP 178/115; PULSE 94; RESP 14; TEMP 36.4; O2SAT 96
--- NOTE | 2021-10-07 21:32 | ED.VIS.DYS ---
HPI History of Present Illness Chief Complaint: Shortness of Breath Detail of Chief Complaint: Shortness of breath that started earlier today. Informant: patient Narrative Narrative: Patient presents to the emergency department complaint of shortness of breath that started today. Patient states that she was diagnosed with COVID-19 2 days ago and the following day had monoclonal antibody infusion. Today she was feeling lightheaded and feeling more short of breath and came in to be evaluated for concern of possible blood clot. She has no history of PE or DVT. She has not had a fever for 2 days. She does describe some exertional dyspnea. Cough is nonproductive. She is lost taste and smell. [facility] Medical History (Updated 10/07/21 @ 23:[address] Ventura Beltre DO) Anxiety COVID-19 Home Medications albuterol sulfate 1 inh INHALATION Q6H #1 ea 10/05/21 [Rx Last Taken Unknown] dexamethasone [Decadron] 6 mg PO DAILY #5 tab 10/05/21 [Rx Last Taken Unknown] hydroxyzine pamoate [Vistaril] 50 mg PO BID #20 cap 10/05/21 [Rx Last Taken Unknown] dexamethasone [Decadron] 6 mg PO DAILY #3 tab 10/07/21 [Rx Last Taken Unknown] levofloxacin 750 mg PO DAILY #5 tab 10/07/21 [Rx Last Taken Unknown] Allergy/AdvReac Type Severity Reaction Status Date / Time No Known Allergies Allergy Verified 10/07/21 21:18 Surgical History History of hysterectomy History of tonsillectomy Social History Smoking Status: Former smoker ROS ROS ED Constitutional Constitutional ED: Reports systems reviewed and no addt'l complaints, except as documented; Denies body ache(s), change in weight or chills Eyes Eyes: Denies acute decrease in peripheral vision, change in vision, double vision or loss of vision ENT ENT ED: Reports none; Denies ear pain, lip swelling, loss taste/smell, neck pain, otalgia or sore throat Cardiovascular Cardiovascular: Reports none; Denies abdominal pain, chest pain with activity, leg edema, lightheadedness, palpitations, rapid heart rate or syncope Respiratory/Chest Respiratory/Chest: Reports none, cough and dyspnea; Denies change in mental status, dry cough, hemoptysis, shortness of breath at rest or shortness of breath with exertion Gastrointestinal Gastrointestinal: Reports none; Denies abdominal pain, change in stool character, diarrhea, hematemesis, hematochezia, melena, rectal bleeding or vomiting Genitourinary Genitourinary ED: Reports none; Denies abdominal discomfort, anuria, dysuria, genital pain or polyuria Musculoskeletal Musculoskeletal: Reports none and myalgias; Denies arthralgias, back pain, difficulty walking, extremity pain or muscle weakness Integumentary Reports none; Denies abscess or rash Neurologic Neurologic: Reports none; Denies abnormal gait, confusion, focal weakness, frequent falls, headache(s), loss of vision, numbness, paresthesias, radicular pain, vertigo or weakness Psychiatric Psychiatric: Reports systems reviewed and no addt'l complaints, except as documented and none; Denies behavioral changes, confusion, difficulty concentrating, hallucinations, suicidal ideation, tactile hallucinations or visual hallucinations Endocrine Endocrinology: Denies none, cold intolerance, excessive sweating, fatigue or heat intolerance Hematologic/Lymphatic Hematologic/Lymphatic: Reports none; Denies anemia, easy bleeding or easy bruising Allergic/Immunologic Allergic/Immunologic ED: Denies as per HPI, none, lip swelling, mouth swelling, throat swelling, tongue swelling or hives EXAM Physical Exam Const Vital Signs: 10/07/21 21:15 10/07/21 21:23 10/07/21 21:29 Temperature 97.2 F L 97.6 F L Temperature Source Temporal Temporal Pulse Rate 95 94 Respiratory Rate 18 14 Respiratory Effort Short of Breath Respiratory Depth Normal Respiratory Pattern Normal Blood Pressure 166/108 H 178/115 H Blood Pressure Mean 127 136 Pulse Ox 95 96 Oxygen Delivery Method Room Air Room Air Positive well nourished and well developed General Appearance ED: well developed and NAD HEENT Reports TM's clear and moist mucous membranes normocephalic and atraumatic; Negative for trauma or tenderness Tympanic Membrane ED: Yes TM's clear Eyes PERRL and EOMs intact bilaterally General Eye ED: Negative for pale conjunctiva or scleral icterus Neck no lymphadenopathy, supple and no JVD General: Negative for tenderness Chest Wall inspection of chest normal and palpation of chest normal Chest: Negative for tenderness Resp normal respiratory effort and clear to auscultation bilaterally Effort and Inspection: Negative for respiratory distress or pain with movement Auscultation: Negative for rhonchi, wheezes or diminished lung sounds Cardio regular rate, regular rhythm, S1 normal heart sound, S2 normal heart sound and no murmurs Peripheral Pulses: pulses 2+ throughout GI normal to inspection, nondistended, normoactive bowel sounds, soft to palpation, non-tender, non-distended and no masses Back/Spine no CVA tenderness and no thoracic nor lumbar tenderness Extremity normal to inspection General Extremety ED: Negative for edema General Extremity: Negative for edema Neuro oriented x3, CN's II-XII intact bilaterally, no sensory deficits noted and gait normal Sensorium / Orientation: awake, alert, oriented to person, oriented to place and oriented to time Motor Exam: strength 5/5 throughout and strength abnormal Psych mental status grossly normal Skin no rashes or lesions noted and no wounds MDM MDM MDM Narrative Medical decision making narrative: IV line established on arrival. Patient had an elevated D-dimer therefore CTA was obtained which showed no evidence of PE but it did show worsening Covid pneumonia. Patient will have her Decadron continued for 3 more days. I will treat patient with Levaquin for 5 days as they had concern for development of bacterial pneumonia. Lab Data Attestation: I reviewed the patient's lab results. Labs: Laboratory Results - last 24 hr 10/07/21 10/07/21 10/07/21 21:35 21:35 21:35 WBC 4.7 RBC 4.19 L Hgb 13.2 Hct 38.1 MCV 90.9 MCH 31.5 MCHC 34.6 RDW Std Deviation 40.6 RDW Coeff of Jelly 12.1 Plt Count 331 MPV 9.5 Immature Gran % (Auto) 0.400 Neut % (Auto) 83.5 H Lymph % (Auto) 12.5 L [place] % (Auto) 3.4 Eos % (Auto) 0.0 Baso % (Auto) 0.2 Absolute Neuts (auto) 3.9 Absolute Lymphs (auto) 0.59 L Nucleated RBC % 0 D-Dimer Quant (PE/DVT) 0.84 H* Sodium 141 Potassium 3.6 Chloride 106 Carbon Dioxide 28.0 Anion Gap 7 BUN 13 Creatinine 0.74 Estim Creat Clear Calc 79.60 Est GFR (MDRD) Af Amer 104 Est GFR (MDRD) Non-Af 86 BUN/Creatinine Ratio 17.7 Glucose 151 H Calcium 9.1 Radiography Diagnostic Testing: Clinical Impression(s) from Imaging Studies Chest CTA 10/07/21 22:04 IMPRESSION: No pulmonary embolism or arterial dissection. Worsening bilateral pneumonia suggestive of Covid-19 pneumonia. Electronically Signed: Brian Hanna MD at 23:19 EST , Service support , Discharge Plan Triage Chief Complaint: Shortness of Breath ED Provider: Ventura Beltre Dx/Rx/DC Orders Clinical Impression: Pneumonia due to 2019 novel coronavirus Instructions: Coronavirus Disease 2019 (COVID-19): Overview Prescriptions: New dexamethasone [Decadron] 6 mg tablet 6 mg PO DAILY Qty: 3 RF: 0 levofloxacin 750 mg tablet 750 mg PO DAILY Qty: 5 RF: 0 No Action dexamethasone [Decadron] 6 mg tablet 6 mg PO DAILY Qty: 5 RF: 0 hydroxyzine pamoate [Vistaril] 50 mg capsule 50 mg PO BID Qty: 20 RF: 0 albuterol sulfate 90 mcg/actuation aerosol powdr breath activated 1 inh inhalation Q6H Qty: 1 RF: 0 Primary Care Provider: Talha Belcher Referrals: Talha Belcher [Primary Care Provider] - 1 Week Disposition Disposition: Home, Self Care
[2021-10-07 21:45] LABS: Absolute Lymphocyte Count 0.59 X10^3/uL (0.83-4.51); Absolute Neutrophil Count 3.9 X10^3/uL (2.0-7.7); Basophil# 0.01 X10^3/uL; Basophil% 0.2 % (0-1); Hematocrit 38.1 % (37-47); Hemoglobin 13.2 g/dL (12.0-15.0); Lymphocyte # 0.59 X10^3/ul (0.83-4.51); Lymphocyte % 12.5 % (19-41); Mean Corp Hgb Conc 34.6 g/dL (32-36); Mean Corpuscular Hgb 31.5 pg (27.0-32.0); Mean Corpuscular Volume 90.9 fL (81-99); Mean Platelet Vol. 9.5 fl (6.2-12.0); Monocyte# 0.16 X10^3/uL; Monocyte% 3.4 % (0-10); NRBC Flagged by Analyzer 0 % (0-5); Neutrophil # 3.93 X10^3/uL (2.7-7.7); Neutrophil % 83.5 % (47-70); POSITIVE DIFFERENTIAL YES; Platelet Count 331 K/mm3 (150-450); RBC Distribution Width CV 12.1 % (11.6-14.6); RBC Distribution Width SD 40.6 fl (35.1-43.9); Red Blood Count 4.19 M/mm3 (4.2-5.4); White Blood Count 4.7 K/mm3 (4.4-11.0)
[2021-10-07 21:49] LABS: Differential Indicated SCAN CRITERIA MET
[2021-10-07 21:58] LABS: Anion Gap 7 (5-15); BUN 13 mg/dL (7-18); BUN/Creat Ratio 17.7 RATIO (10-20); Calcium,Total 9.1 mg/dL (8.5-10.1); Chloride 106 mmol/L (98-107); Creatinine, Serum 0.74 mg/dL (0.55-1.02); EST Glomerular Filtration Rate 86 mL/min (>60); Est Glom Filt Rate - Afr Amer 104 mL/min (>60); Glucose 151 mg/dL (74-106); Potassium 3.6 mmol/L (3.5-5.1); Sodium Level 141 mmol/L (136-145)
[2021-10-07 22:01] LABS: D-Dimer Quantitative (DVT/PE) 0.84 FEU/ug/m (0.27-0.49)
--- NOTE | 2021-10-07 22:04 | CT_ITS ---
STUDY: CTA CHEST REASON FOR EXAM: Female, 61 years old. dyspnea, elevated d-dimer RADIATION DOSAGE (If Supplied By Facility): CTDIvol = ( 11.90 ) mGy, DLP = ( 475.98 ) mGycm TECHNIQUE: The examination was performed with the intravenous administration of IV 100mL Isovue-370. Post-processing of the angiographic images was performed, with multiplanar reformation and maximum intensity projections.. Individualized dose optimization techniques were used for this CT. COMPARISON: October 05, 2021. Chest x-ray October 05, 2021. FINDINGS: Normal enhancement of the main pulmonary artery and right and left pulmonary arteries. Normal enhancement of the bilateral peripheral pulmonary arteries. There is no demonstrated pulmonary embolism. Normal thoracic aorta and visualized great vessels. There is no demonstrated aortic dissection. Normal heart and pericardium. Normal mediastinum. Normal hilar regions. Normal visualized trachea and bronchi. Diffuse primarily peripheral groundglass opacities slightly worse as compared to prior study. No effusions. No pneumothorax. Normal chest wall structures. Normal osseous structures. Normal visualized upper abdomen. CT/CTA Chest W/WO Contrast IMPRESSION: No pulmonary embolism or arterial dissection. Worsening bilateral pneumonia suggestive of Covid-19 pneumonia. Electronically Signed: Brian Hanna MD at 23:19 EST , Service support ,
[2021-10-08 00:09] VITALS: RESP 18
== END 2021-10-08 01:09 | disposition home or self-care (01) ==
PROVIDERS: Emergency Provider Emergency Medicine; PCP Student in an Organized Health Care Education/Training Program
DX: U07.1 COVID-19 (principal); J12.82 Pneumonia due to coronavirus disease 2019; F41.9 Anxiety disorder, unspecified; Z79.899 Other long term (current) drug therapy; Z87.891 Personal history of nicotine dependence
CPT/HCPCS: 71275; 80048; 85025; 85379; 99283; Q9967; A4216

== ENCOUNTER → 2022-12-25 | Outpatient (CLI) | payer BC, SELFPAY ==
--- NOTE | 2022-12-25 16:59 | STRESSREP_ITS ---
Stress Test Report Exercise myocardial perfusion stress test. 62-year-old lady with a history of chest pain Stress protocol: Resting EKG demonstrates normal sinus rhythm with a rate of 82 bpm resting blood pressure is 138/70 mmHg. The patient exercised according to the regular Rivera protocol for a total duration of 6 minutes and 30 seconds attaining a maximum heart rate of 157 bpm which was 98% of maximum predicted heart rate; the maximum workload was 8.4 metabolic equivalents. At rest there were no ST or T wave changes noted to suggest ischemia and at peak exercise upsloping ST changes only were noted which did not meet the criteria for ischemia. No clinical angina was noted the test was terminated due to the target heart rate being achieved/fatig ue. No chest pain was noted and no arrhythmias were noted. The peak blood pressure was 170/98 mmHg. Rate-pressure product was 25,700. Conclusion: Exercise stress test with no evidence of ischemia at a moderate workload
== END | disposition home or self-care (01) ==
PROVIDERS: PCP Student in an Organized Health Care Education/Training Program; Referring Provider Student in an Organized Health Care Education/Training Program; Visit Provider Student in an Organized Health Care Education/Training Program
DX: R07.89 Other chest pain (principal); R94.31 Abnormal electrocardiogram [ECG] [EKG]
CPT/HCPCS: 93017